=== PATIENT | male | born 1980 | race Caucasian/White ===

== ENCOUNTER 2023-11-02 10:21 | Emergency (ER) | payer OTHER, SELFPAY ==
[2023-11-02] VITALS (15 sets, daily range): BP systolic 118–144; BP diastolic 85–98; BMI 29.6
[2023-11-02] MEDS: NSS 1000 IV (10:45)
[2023-11-02] MEDS: ADENOCARD 6 MG IV (10:47)
[2023-11-02] MEDS: ADENOCARD 12 MG IV (10:50)
--- NOTE | 2023-11-02 10:55 | EDRN ---
Pt was administered 6mg of Adenosine IV at 10:[address] Garcia w/ cynthia RN [facility]. Post 6 mg no noted slowing or change in rate or cardiac rhythm, an SVT 166-[address] Garcia w/ cynthia RN [facility] then administered
adenosine 12 mg IV at 10:50 w/ only slight slowing of rate to emmie 140's, just enough to see that underlying rhythm is A Fib w/RVR rate 160-170. After a few seconds rate returned to 170. Dr. Garcia left to consult cardiology at that time.
[2023-11-02 11:16] LABS: % Basophils 0.5 % (0-2); % Eosinophils 1.3 % (0-6); % Immature Granulocytes 0.2 % (0-0.5); % Lymphocytes 20.4 % (20.5-51.1); % Monocytes 6.6 % (1.7-9.3); Absolute Eosinophils 0.1 10^3/uL (0-0.7); Absolute Lymphocytes 1.8 10^3/uL (1.2-3.4); Absolute Monocytes 0.6 10^3/uL (0.1-0.6); Absolute Neutrophils 6.2 10^3/uL (1.4-6.5); Hemoglobin 15.9 g/dL (13.0-18.0); Mean Corp Hgb Conc. 35.3 g/dL (33.0-37.0); Mean Corpuscular Hgb 31.4 pg (27.0-31.0); Mean Corpuscular Volume 88.9 fL (80.0-94.0); Mean Platelet Volume 9.2 fL (7.4-10.4); Nucleated Red Blood Cells % 0 % (-); Platelet Count 288 10^3/uL (130-400); Red Blood Cell Count 5.06 10^6/uL (4.70-6.10); Red Cell Dist. Width 12.6 % (11.5-14.5); White Blood Cell Count 8.7 10^3/uL (4.8-10.8)
[2023-11-02 11:33] LABS: ALT (SGPT) 42 U/L (0-50); AST (SGOT) 34 U/L (17-59); Albumin 4.8 g/dl (3.5-5.0); Alkaline Phosphatase 71 U/L (38-126); Blood Urea Nitrogen 12 mg/dl (9-20); Calcium 9.9 mg/dl (8.4-10.2); Carbon Dioxide 27 mmol/L (22-30); Chloride 102 mmol/L (98-107); Estimated Creatinine Clearance 112 ml/min; Glucose 121 mg/dl (70-99); Magnesium 1.9 mg/dl (1.6-2.3); Sodium 141 mmol/L (135-145); Total Bilirubin 0.5 mg/dl (0.2-1.3); Total Protein 7.1 g/dl (6.3-8.2); eGFR > 60.00
--- NOTE | 2023-11-02 11:40 | CM ---
Cm was consulted for Eliquis tomas check. Eliquis tomas $60. Patient agreeable to cost. CM provided patient with Eliquis butter fat tester coupon.
[2023-11-02] MEDS: ELIQUIS 5 MG PO (12:24)
--- NOTE | 2023-11-02 13:27 | ED.GENMED ---
History of Present Illness
General
Chief Complaint: Chest Pain
Source: patient, spouse and significant other
Exam Limitations: none
Time Seen by Provider: 11/02/23 10:39
Nursing documentation reviewed up to this point in time: agreed with except (He reports consistent symptoms unremitting since last night to me)
History of Present Illness
History of Present Illness:
43-year-old male with no reported chronic medical issues presents to the emergency room for evaluation of palpitations and chest discomfort. He reports onset of symptoms while he was resting watching TV yesterday evening. He reports a pressure
sensation substernal associate with palpitations and racing heart. He says he has some mild shortness of breath. Denies any dizziness. He denies any nausea, vomiting, diaphoresis. No abdominal pain. He denies any recent cough, fevers, chills.
No URI symptoms. He denies having had similar symptoms in the past. He says that he was able to get to sleep last night despite his symptoms but when he woke up this morning he was still feeling the same symptoms and decided to come to the ER to
be evaluated. Notably his EKG in triage showed marked tachycardia SVT versus A-fib�denies any known history of A-fib but does report that he has a family history in his brother. Denies any prior palpitations or cardiac issues.
Review of Systems
Review of Systems
All Other Systems: ROS reviewed and negative except as documented in HPI and ROS
Constitutional: Denies fever or chills
EENT: Denies sore throat or runny nose
Respiratory: Reports trouble breathing; Denies cough
Cardiac: Reports chest pain and palpitations; Denies diaphoresis or syncope
ABD/GI: Denies abdominal pain, nausea or vomiting
: Denies flank pain
Musculoskeletal: Denies neck pain or back pain
Neurological: Denies dizzy or headache
Phy Exam
Physical Exam
Physical Exam:
General: Awake, alert, oriented x3; no acute distress
Head: Normocephalic, atraumatic
Eyes: Conjunctiva normal, EOMI
Throat: Airway intact, mucous membranes moist
Neck: Trachea midline, no JVD
Lungs: Clear to auscultation bilaterally, no wheezing, rales, rhonchi
Heart: Tachycardia with ostensibly regular rhythm (heart rate 170), no murmurs, gallops, or rubs appreciated
Abd: Soft, non distended, nontender
Neuro: No gross deficits
Skin: no rash
Extremities: No edema in extremities, equal pulses in all extremities
Scores
Heart Failure Risk
Heart Failure Risk Score: Not Applicable
Heart Score for Chest Pain Patients
STEMI patient?: Not applicable
Withdrawal Assessment of Alcohol
Withdrawal Assessment Completed?: Not applicable
Course
Orders/Labs/Results
Orders:
Orders
11/02/23 10:28
Electrocardiogram (*1) Urgent
Reason for Study: Chest Pain
EKG- Treatment ONCE
11/02/23 10:41
0.9% Sodium Chloride 1000 ml [Nss] 1,000 ml IV BOLUS
11/02/23 10:45
Adenosine [Adenocard] 18 mg .ROUTE .STK-MED ONE
11/02/23 11:05
Complete Blood Count/With Diff Urgent
Comprehensive Metabolic Panel Urgent
Magnesium Urgent
11/02/23 11:24
Case Management Consult ONCE
Case Management Consult: Other
Comment: Eliquis prescription
11/02/23 11:25
Propofol [Diprivan] 20 ml .ROUTE .STK-MED
11/02/23 11:48
Electrocardiogram (*1) Urgent
Reason for Study: Chest Pain
EKG- Treatment ONCE
11/02/23 11:56
Apixaban [Eliquis] 5 mg PO ONCE ONE
Abnormal Lab Results
11/02/23
11:05
MCH 31.4 H pg
(27.0-31.0)
Lymphocytes % 20.4 L %
(20.5-51.1)
Glucose 121 H mg/dl
(70-99)
11/02/23 11:05
11/02/23 11:05
Vital Signs
Initial and Last Documented VS:
Initial Vital Signs
Temp Pulse Resp BP Pulse Ox
37.1 C 175 20 129/97 99
11/02/23 10:33 11/02/23 10:33 11/02/23 10:33 11/02/23 10:33 11/02/23 10:33
Last Documented Vital Signs
Temp Pulse Resp BP Pulse Ox
37.1 C 88 17 126/92 98
11/02/23 12:13 11/02/23 12:45 11/02/23 12:45 11/02/23 12:45 11/02/23 12:45
Procedures
Moderate Sedation
Moderate Sedation Start Time(when first medication is given): 11:
Moderate Sedation Procedure End Time: 11:52
Cardioversion
Indication:: Afib
Performed by:: Ward Garcia MD
Synchronized?: Yes
Energy Used: 200 joules
Number of attempts: 1
Successful?: Yes
ASA Risk Score: Class I
Any reaction or bad outcome to prior sedation/anesthesia?: No history of a reaction
Sedation level to be attained: moderate
Chart and allergies reviewed: Yes
Patient reassessed prior to sedation: Yes
Time out completed at (validating right patient & procedure): 11:42
History of difficult intubation: No
Airway free of obstruction: Yes
Patient has a gag reflex: Yes
Patient is able to open mouth: Yes
Patient has no dentures: Yes
Patient has no loose teeth: Yes
Medication administered by Provider during Moderate Sedation: IV Propofol (mg)
Total dose administered: 120
Time drug administered: 11:42
Start Time: 11:42
Stop Time: 11:52
MDM/Problems Addressed
Differential Diagnosis Includes:
Symptomatic A-fib versus SVT
MDM/Problems Addressed:
43-year-old male presents for evaluation of palpitations, chest discomfort, shortness of breath that started last night around 6 PM. Continued into this morning which prompted him to come to the ER. EKG in triage shows narrow complex tachycardia
with a heart rate of 160 likely A-fib although somewhat difficult to determine due to marked tachycardia. He was immediately brought back to room, IV placed labs sent off including CBC and CMP, magnesium level. IV fluids started. He was given 6
mg adenosine with no effect, then given 12 mg adenosine�rhythm strip reviewed during slowing which confirms diagnosis of atrial fibrillation; heart rate immediately returned to the 140s�160s. Case discussed with cardiology�while patient is not on
anticoagulation given clear time of onset at 6 PM last night they recommended proceeding with ED cardioversion. I spoke to the patient and we discussed options including rate control versus ED cardioversion�he wishes to proceed with cardioversion.
Labs reviewed: CBC and CMP unremarkable. Will proceed with cardioversion as above. Consent filed and medical record. Will initiate anticoagulation status post cardioversion.
Patient cardioverted successfully as documented in procedure note. Patient symptoms completely resolved after cardioversion. Initially sinus tach, heart rate then returned to the 80s. Will monitor after sedation and cardioversion�if he remains
asymptomatic with normal heart rate and sinus rhythm we will plan for discharge.
Patient remains asymptomatic with normal heart rate, normal vitals, sinus rhythm on the monitor after ED observation. Will start on Eliquis�discussed with case management to arrange for prescription pickup from pharmacy. Spoke to patient at length
about follow-up plan�will refer to cardiology of ER chest pain hotline for expedited follow-up. Spoke about return precautions and all questions answered.
*Pulse Oximetry
Patient hypoxic: no
*EKG
Interpreted by ED Provider?: Yes
Heart Rate: 160
Rate: tachycardiac
Rhythm: a-fib
Interval: normal interval
QRS Pattern: normal QRS
Ischemia: non-specific ST changes
*Critical Care Note
Total Time (30-74mins, 75-104mins- exclusive of procedures): 30
comment:
Critical care statement: A total of 30 minutes of critical care time was provided for this patient. This includes management of unstable vital signs, evaluation of the patient at bedside, frequent reassessment, discussion with
consultants/hospitalist, and review of pertinent medical records. This time was separate from time utilized to perform any aforementioned documented procedures
Data Reviewed
Source: patient, significant other and family
Patient Management
Discussion with other providers: Craft Worker (Discussed with corporate traffic manager)
ED Attending Note
-
Portions of this chart may have been created with voice recognition software.� Occasional wrong word or��sound alike� substitutions may have occurred due to the inherent limitations of voice recognition software.
Discharge Plan
Departure
Patient Disposition: Home (Routine Discharge)
Date of Disposition: 11/02/23
Time of Disposition: 12:42
Patient with high blood pressure during this ER visit?: No
Discharge Problem:
Atrial fibrillation status post cardioversion
Instructions: Atrial Fibrillation (DC), Chest Pain DCA Follow Up
Prescriptions:
New
Eliquis 5 mg tablet
5 mg PO BID Qty: 60 0RF
Referrals:
Ray Swan MD [Active] - Call in 1-3 days for appt
Activity Restrictions/Additional Instructions:
Thank you for visiting the Emergency Department at [facility].
1. Please schedule a follow up appointment as directed. Call first thing tomorrow morning to make an appointment.
2. If indicated, please take your medications as instructed and indicated on discharge paperwork.
3. If any of your symptoms do not improve, or persist, or become more severe within 6-12 hours, please return to the emergency department for further care.
4. Please return to the emergency department if you develop a headache, neck pain/stiffness, fever greater than 100.4F, chest pain, shortness of breath, persistent nausea, vomiting, slurred speech, difficulty walking, numbness/tingling, weakness,
signs of infection or any other symptoms that are worrisome to you.
Please call [phone] if you have any questions.
Interventions
Interventions:
*Risk Screen - Suicide Last Done: 11/02/23 10:33
*General Assessment Last Done: 11/02/23 11:00
*Neglect/Abuse Screening Last Done: 11/02/23 11:00
ED- Fall Risk Assessment Last Done: 11/02/23 11:01
*ED COVID-19 Vaccine History Last Done: 11/02/23 11:00
*Nursing Disposition Last Done: 11/02/23 12:55
ED- Cardiac Assessment Last Done: 11/02/23 11:02
Discharge Date and Time
Discharge Date/Time: 11/02/23 12:55
Print Language: GAMBIAN
== END 2023-11-02 12:55 | disposition home or self-care (01) ==
LOC: EMR 10:21
PROVIDERS: EMERGENCY PHYSICIAN Emergency Medicine; FAMILY PHYSICIAN Family Medicine
DX: I48.91 Unspecified atrial fibrillation (principal)
CPT/HCPCS: 99291; 92960; 96374; 96375; 96361 ×2; 99152; 80053; 83735; 85025; 93005; J0153

== ENCOUNTER → 2023-11-20 09:02 | Outpatient (REF) | payer BC, SELFPAY | LOC: RCS 09:02 | PROVIDERS: ATTENDING PHYSICIAN Nuclear Medicine Nuclear Cardiology; FAMILY PHYSICIAN Family Medicine | DX: R07.9 Chest pain, unspecified (principal) | CPT/HCPCS: 93017; 93350 ==

== ENCOUNTER → 2023-11-27 13:38 | Outpatient (REF) | payer BC, SELFPAY | LOC: RCS 13:38 | PROVIDERS: ATTENDING PHYSICIAN Nuclear Medicine Nuclear Cardiology; FAMILY PHYSICIAN Family Medicine | DX: I48.91 Unspecified atrial fibrillation (principal); R07.9 Chest pain, unspecified; R00.2 Palpitations | CPT/HCPCS: 93306 ==

== ENCOUNTER 2023-12-30 08:43 | Emergency (ER) | payer BC, SELFPAY ==
[2023-12-30 08:46] VITALS: BP 161/110
[2023-12-30 08:54] VITALS: BP 144/95; BMI 28.6
--- NOTE | 2023-12-30 09:15 | ED.GENMED ---
History of Present Illness
General
Chief Complaint: Heart Rate Problem
Source: patient
Exam Limitations: none
Time Seen by Provider: 12/30/23 08:55
Nursing documentation reviewed up to this point in time: agreed with
History of Present Illness
History of Present Illness:
43-year-old male past medical history of A-fib diagnosed 2 months ago started on Eliquis was cardioverted at that time has felt intermittent palpitations over the past few days specifically this morning as well. Denies any ongoing symptoms at this
point no chest pain some mild shortness of breath when having the palpitations no fevers no recent illness.
Review of Systems
Review of Systems
Allergies reviewed?: Yes
All Other Systems: ROS reviewed and negative except as documented in HPI and ROS
Phy Exam
Physical Exam
Physical Exam:
GENERAL: Alert , in no apparent distress
EYE: pupils equal and reactive
NECK: Supple, no significant adenopathy.
ENT: o/p clr, mmm.
CARDIAC: Regular rate and rhythm .
LUNGS: Clear breath sounds bilaterally, no acute respiratory distress, no wheezes/rales/rhonchi
ABDOMEN: Soft, without focal tenderness, no r/g, no cvat
NEUROLOGICAL: Alert and oriented, no focal neuro deficits
SKIN: Warm and dry, skin intact.
MUSCULOSKELETAL: No edema, well perfused.
PSYCH: Normal and appropriate interaction.
Course
Orders/Labs/Results
Orders:
Orders
12/30/23 08:43
Electrocardiogram (*1) Urgent
Reason for Study: Palpitations
EKG- Treatment ONCE
12/30/23 09:02
CMP [Comprehensive Metabolic Panel] Urgent
Complete Blood Count/With Diff Urgent
TSH Reflex To Free T4 Urgent
Abnormal Lab Results
12/30/23
09:02
WBC 4.7 L 10^3/uL
(4.8-10.8)
MCH 31.9 H pg
(27.0-31.0)
Glucose 112 H mg/dl
(70-99)
12/30/23 09:02
12/30/23 09:02
Vital Signs
Initial and Last Documented VS:
Initial Vital Signs
Temp Pulse Resp BP Pulse Ox
98.4 F 102 18 161/110 98
12/30/23 08:46 12/30/23 08:46 12/30/23 08:46 12/30/23 08:46 12/30/23 08:46
Last Documented Vital Signs
Temp Pulse Resp BP Pulse Ox
98.4 F 82 13 131/99 98
12/30/23 08:46 12/30/23 11:15 12/30/23 11:15 12/30/23 11:00 12/30/23 08:46
MDM/Problems Addressed
MDM/Problems Addressed:
43-year-old male presenting to the emergency department today with concerns of intermittent palpitations shortness of breath over the past few days recently diagnosed with A-fib 2 months ago and was cardioverted at the time has been taking Eliquis
since. Had cardiac workup including echo stress and Holter monitor which were normal a month ago. Here vital signs are normal patient well-appearing no distress denies any ongoing symptoms. No significant abnormalities to the labs. Normal rhythm
when being monitored while here. No ongoing symptoms. Patient potentially going in and out of A-fib but no emergent findings advised for close cardiac follow-up. He was started on metoprolol for symptoms return precautions given.
*Critical Care Note
Total Time (30-74mins, 75-104mins- exclusive of procedures): Not Applicable
ED Attending Note
-
Portions of this chart may have been created with voice recognition software.� Occasional wrong word or��sound alike� substitutions may have occurred due to the inherent limitations of voice recognition software.
Discharge Plan
Departure
Patient Disposition: Home (Routine Discharge)
Date of Disposition: 12/30/23
Time of Disposition: 11:33
Patient with high blood pressure during this ER visit?: No
Condition: Good
Covid-19: Not Applicable
Discharge Problem:
Heart palpitations
Instructions: Palpitations (DC)
Prescriptions:
New
metoprolol tartrate 25 mg tablet
25 mg PO BID 14 Days Qty: 28 0RF
No Action
Eliquis 5 mg tablet
5 mg PO BID Qty: 60 0RF
Referrals:
Yaakov Villanueva MD [Active] - Follow up in 5-7 days
NONE,* [Family Provider] -
Activity Restrictions/Additional Instructions:
You came to the emergency department today with concerns of palpitations. Please help closely with cardiology and start metoprolol twice daily. Return to the emergency department for any worsening, new or concerning symptoms.
Interventions
Interventions:
*Risk Screen - Suicide Last Done: 12/30/23 08:46
*General Assessment Last Done: 12/30/23 08:46
*Neglect/Abuse Screening Last Done: 12/30/23 08:46
ED- Fall Risk Assessment Last Done: 12/30/23 08:55
*ED COVID-19 Vaccine History Last Done: 12/30/23 08:55
ED- Cardiac Assessment Last Done: 12/30/23 08:55
ED- Pulmonary Assessment Last Done: 12/30/23 08:55
Discharge Date and Time
Print Language: OCCITAN
[2023-12-30 09:16] LABS: % Basophils 0.6 % (0-2); % Eosinophils 1.3 % (0-6); % Immature Granulocytes 0.2 % (0-0.5); % Lymphocytes 30.9 % (20.5-51.1); % Monocytes 8.8 % (1.7-9.3); % Neutrophils 58.2 % (42.2-75.2); Absolute Eosinophils 0.1 10^3/uL (0-0.7); Absolute Lymphocytes 1.4 10^3/uL (1.2-3.4); Absolute Monocytes 0.4 10^3/uL (0.1-0.6); Absolute Neutrophils 2.7 10^3/uL (1.4-6.5); Hematocrit 43.6 % (39.0-52.0); Mean Corp Hgb Conc. 36.7 g/dL (33.0-37.0); Mean Corpuscular Hgb 31.9 pg (27.0-31.0); Mean Corpuscular Volume 86.9 fL (80.0-94.0); Mean Platelet Volume 9.1 fL (7.4-10.4); Nucleated Red Blood Cells % 0 % (-); Platelet Count 281 10^3/uL (130-400); Red Blood Cell Count 5.02 10^6/uL (4.70-6.10); Red Cell Dist. Width 12.3 % (11.5-14.5); White Blood Cell Count 4.7 10^3/uL (4.8-10.8)
[2023-12-30 09:28] LABS: ALT (SGPT) 35 U/L (0-50); AST (SGOT) 34 U/L (17-59); Albumin 4.9 g/dl (3.5-5.0); Alkaline Phosphatase 51 U/L (38-126); Blood Urea Nitrogen 13 mg/dl (9-20); Calcium 9.8 mg/dl (8.4-10.2); Carbon Dioxide 25 mmol/L (22-30); Chloride 102 mmol/L (98-107); Estimated Creatinine Clearance 112 ml/min; Glucose 112 mg/dl (70-99); Potassium 4.5 mmol/L (3.5-5.1); Sodium 141 mmol/L (135-145); Total Bilirubin 0.8 mg/dl (0.2-1.3); Total Protein 7.4 g/dl (6.3-8.2); eGFR > 60.00
[2023-12-30 10:00] VITALS: BP 126/89
[2023-12-30 10:00] LABS: TSH Reflex To Free T4 1.19 uIU/ml (0.47-4.68)
[2023-12-30 11:00] VITALS: BP 131/99
== END 2023-12-30 11:40 | disposition home or self-care (01) ==
LOC: EMR 08:43
PROVIDERS: Physician Assistant; EMERGENCY PHYSICIAN Emergency Medicine
DX: R00.2 Palpitations (principal); Z79.01 Long term (current) use of anticoagulants; Z86.79 Personal history of other diseases of the circulatory system
CPT/HCPCS: 99284; 80053; 84443; 85025; 93005